=== PATIENT | male | born 1960 | race Caucasian/White ===

== ENCOUNTER 2018-06-17 02:07 | Emergency (ER) | END 2018-06-17 06:00 | disposition home or self-care (01) ==

== ENCOUNTER 2018-07-23 23:33 | Emergency (ER) | END 2018-07-24 05:42 | disposition home or self-care (01) ==

== ENCOUNTER 2018-09-04 20:24 | Emergency (ER) | END 2018-09-05 04:07 | disposition home or self-care (01) ==

== ENCOUNTER 2018-12-12 15:36 | Emergency (ER) | payer OTHER ==
[~2018-12-12] VITALS: Wt 87.0 kg
[~2018-12-12 15:36] MED LIST: ALBU18HF INHALATION; ALBU8.5H8 INH; AMLO-147 PO; AZIT250T PO; BECL10.62 IH; FLUT1BLS INHALATION; GABA300C16 PO; INSU100I12 SQ; INSU100I27 SQ; LEVE500S8 PO; LISI1TAB6 PO; LORA1TAB PO; METF-849 PO; PRED20TA PO; RANI150T35 PO
[2018-12-12 15:37] VITALS: BP 141/89; PULSE 95; RESP 18
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
== END 2018-12-12 18:01 | disposition home or self-care (01) ==
LOC: FTE 15:36
DX: R20.0 Anesthesia of skin (principal); E11.9 Type 2 diabetes mellitus without complications; I10 Essential (primary) hypertension; F17.210 Nicotine dependence, cigarettes, uncomplicated; Z79.4 Long term (current) use of insulin
CPT/HCPCS: 82962; 93971

== ENCOUNTER 2019-01-01 20:05 | Emergency (ER) | payer OTHER ==
[~2019-01-01] VITALS: Ht 167.6 cm; Wt 63.6 kg
[2019-01-01 20:13] VITALS: Ht 167.6 cm; Wt 63.6 kg
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
[2019-01-01] MEDS ORDERED: ALBUTEROL 0.5% (NEB) 2.5 MG/0.5 ML AMP INH STA (20:41)
[2019-01-01] MEDS ORDERED: IPRATROPIUM (NEB) 0.5 MG/2.5 ML AMP INH STA (20:41)
[2019-01-01] MEDS ORDERED: PANTOPRAZOLE 40 MG INJ IV ONE (21:00)
[2019-01-01] MEDS ORDERED: METHYLPREDNISOLONE 125 MG INJ IV ONE (21:00)
[2019-01-01] MEDS ORDERED: DOCU-144 PO (21:29)
[2019-01-01] MEDS ORDERED: OMEP20CA16 PO (21:30)
[2019-01-01] MEDS ORDERED: ATOR20TA38 PO (21:30)
[2019-01-01] MEDS ORDERED: ALBU18HF INHALATION (21:31)
[2019-01-01] MEDS ORDERED: FLUT1BLS INHALATION (21:32)
[2019-01-01] MEDS ORDERED: AMLO-147 PO (21:32)
[2019-01-01] MEDS ORDERED: GABA-528 PO (21:32)
[2019-01-01] MEDS ORDERED: INSU100I12 SQ (21:33)
[2019-01-01] MEDS ORDERED: LEVE10006 PO (21:34)
[2019-01-01] MEDS ORDERED: LISI1TAB6 PO (21:35)
[2019-01-01] MEDS ORDERED: METF500T24 PO (21:37)
[2019-01-01] MEDS ORDERED: ESCI10TA48 PO (21:38)
[2019-01-01] MEDS ORDERED: METO5TAB2 PO (21:40)
[2019-01-01] MEDS ORDERED: LANT3I SC (21:41)
[2019-01-01] MEDS ORDERED: FAMO20TA18 PO (21:42)
[2019-01-01] MEDS ORDERED: ALPR0.5T PO (21:44)
[2019-01-01] MEDS ORDERED: MIRT15TA5 PO (21:44)
[2019-01-01] MEDS ORDERED: TIOT18CA INHALATION (21:45)
[2019-01-02 00:08] VITALS: BP 113/65; PULSE 92; RESP 21
[2019-01-02] MEDS ORDERED: ALBU18HF INHALATION (00:45)
[2019-01-02] MEDS ORDERED: FAMO-96 PO (00:45)
== END 2019-01-02 00:57 | disposition home or self-care (01) ==
LOC: E/R 20:05
DX: J44.1 Chronic obstructive pulmonary disease with (acute) exacerbation (principal); I25.10 Atherosclerotic heart disease of native coronary artery without angina pectoris; E11.9 Type 2 diabetes mellitus without complications; I10 Essential (primary) hypertension; R06.02 Shortness of breath; Z85.118 Personal history of other malignant neoplasm of bronchus and lung; Z87.891 Personal history of nicotine dependence; Z79.4 Long term (current) use of insulin
CPT/HCPCS: 36415; 36600; 71045; 80053; 80307; 82803; 82962; 84484; 85025; 85610; 85730; 93005; 94644; 96374; 96375; 99285; C9113; J2930

== ENCOUNTER 2019-01-03 12:58 | Emergency (ER) | payer MEDICARE, OTHER ==
[~2019-01-03] VITALS: Ht 167.6 cm; Wt 70.0 kg
[~2019-01-03 12:58] MED LIST changes: -ALBU8.5H8 INH; +ALPR0.5T PO; +ATOR20TA38 PO; -AZIT250T PO; -BECL10.62 IH; +DOCU-144 PO; +ESCI10TA48 PO; +FAMO-96 PO; +FAMO20TA18 PO; +GABA-528 PO; -GABA300C16 PO; -INSU100I27 SQ; +LANT3I SC; +LEVE10006 PO; -LEVE500S8 PO; -LORA1TAB PO; -METF-849 PO; +METF500T24 PO; +METO5TAB2 PO; +MIRT15TA5 PO; +OMEP20CA16 PO; -PRED20TA PO; -RANI150T35 PO; +TIOT18CA INHALATION
[2019-01-03] MEDS ORDERED: MAGNESIUM SULFATE 2 GM, MULTIVITAMINS 10 ML, THIAMINE 100 MG, FOLIC ACID 1 MG in SOD CH... IV STA (13:15)
[2019-01-03] MEDS ORDERED: PANTOPRAZOLE IV 80 MG in SOD CHLORIDE 0.9% 100 ML IV STA (13:15)
[2019-01-03] MEDS ORDERED: PANTOPRAZOLE IV 80 MG in SOD CHLORIDE 0.9% 100 ML IVPB STA (13:15)
[2019-01-03] MEDS ORDERED: ONDANSETRON 4 MG INJ IV STA (13:15)
[2019-01-03] MEDS ORDERED: FAMOTIDINE 20 MG INJ IV STA (13:15)
[2019-01-03 13:16] VITALS: Ht 167.6 cm; Wt 70.0 kg
[2019-01-03] MEDS ORDERED: HYDROmorphONE 2 MG/ML SYG IV STA (13:28)
[2019-01-03] MEDS ORDERED: LORAZEPAM 2 MG INJ IV ONE (13:30)
[2019-01-03] MEDS ORDERED: IPRATROPIUM (NEB) 0.5 MG/2.5 ML AMP NEB STA (13:47)
[2019-01-03] MEDS ORDERED: ALBUTEROL 0.5% (NEB) 2.5 MG/0.5 ML AMP NEB STA (13:47)
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
[2019-01-03 16:10] VITALS: BP 123/78; PULSE 71; RESP 18
== END 2019-01-03 16:11 | disposition left against medical advice (07) ==
LOC: E/R 12:58
DX: T40.2X1A Poisoning by other opioids, accidental (unintentional), initial encounter (principal); K92.2 Gastrointestinal hemorrhage, unspecified; E11.9 Type 2 diabetes mellitus without complications; I10 Essential (primary) hypertension; J45.909 Unspecified asthma, uncomplicated; F17.210 Nicotine dependence, cigarettes, uncomplicated; Z79.4 Long term (current) use of insulin; Z85.05 Personal history of malignant neoplasm of liver; Z85.118 Personal history of other malignant neoplasm of bronchus and lung
CPT/HCPCS: 70450; 80053; 80307; 81003; 82140; 82150; 82550; 82553; 83690; 84484; 85025; 85610; 85730; 87040; 87086; 87400; 94644; 96374; 96375; 99291; C9113; J1170; J2405; J3411; J3475; J7030

== ENCOUNTER 2019-03-31 12:08 | Emergency (ER) | payer OTHER ==
[~2019-03-31] VITALS: Wt 66.5 kg
[2019-03-31 12:26] VITALS: BP 119/60; PULSE 96; RESP 18
[2019-03-31] MEDS ORDERED: IBUPROFEN 800 MG TAB PO ONE (13:00)
[2019-03-31] MEDS ORDERED: IBUP800T48 PO (14:24)
[2019-03-31] MEDS ORDERED: CEPH-443 PO ×2 (14:26)
[2019-03-31] MEDS ORDERED: HYDR-4011 PO (14:39)
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
== END 2019-03-31 14:49 | disposition home or self-care (01) ==
LOC: FTE 12:08
DX: T63.301A Toxic effect of unspecified spider venom, accidental (unintentional), initial encounter (principal); M25.551 Pain in right hip; I10 Essential (primary) hypertension; J45.909 Unspecified asthma, uncomplicated; E11.9 Type 2 diabetes mellitus without complications; F17.210 Nicotine dependence, cigarettes, uncomplicated; Z79.4 Long term (current) use of insulin; Z85.05 Personal history of malignant neoplasm of liver; Z85.118 Personal history of other malignant neoplasm of bronchus and lung
CPT/HCPCS: 73510; 73630